=== PATIENT | female | born 1975 | race Caucasian/White ===

== ENCOUNTER 2024-09-29 14:11 | Emergency (ER) | payer BC, OTHER ==
[2024-09-29 14:27] VITALS: BP 113/69; PULSE 72; RESP 16; TEMP 98.1; BMI 26.5
[2024-09-29 15:29] LABS: INR 1.08 (0.83-1.09)
[2024-09-29 15:30] LABS: ABSOLUTE IMMATURE GRANULOCYTES 0.01 x10^3/uL (0.0-0.031); BASOPHILS # 0.02 x10^3/uL (0.01-0.08); EOSINOPHIL % 3.4 % (0.7-5.8); EOSINOPHILS # 0.16 x10^3/uL (0.04-0.36); HEMATOCRIT 35.1 % (34.1-44.9); HEMOGLOBIN 11.6 g/dL (11.2-15.7); MEAN CELL VOLUME 94.4 fl (79.4-94.8); MEAN PLT VOLUME 9.9 fl (9.4-12.3); MONOCYTE # 0.46 x10^3/uL (0.24-0.86); MONOCYTE % 9.7 % (4.7-12.5); PLATELET COUNT 267 x10^3/uL (182-369); RDW 14.5 % (12.2-17.1)
[2024-09-29 15:32] LABS: ACTIVATED PTT 32.4 SECONDS (25.2-36.5)
[2024-09-29 15:40] LABS: ALBUMIN 3.7 g/dl (3.4-5.0); BILIRUBIN,DIRECT 0.2 mg/dL (0.0-0.2); BILIRUBIN,TOTAL 0.7 mg/dl (0.2-1); CALCIUM 9.6 mg/dl (8.5-10.1); CREATININE 0.7 mg/dl (0.6-1.3); POTASSIUM 3.7 mmol/L (3.5-5.1)
[2024-09-29 16:39] LABS: N-TERMINAL BNP 49.2 pg/ml (5-125)
[2024-09-29 17:25] LABS: HIV INTERPRETATION NEGATIVE (NEGATIVE)
[2024-09-29 17:26] LABS: HCV DIAGNOSTIC IN-HOUSE W/RFLX NON-REACTIVE (NONREACTIVE)
== END 2024-09-29 17:31 | disposition home or self-care (01) ==
LOC: FER 14:11
DX: M79.89 Other specified soft tissue disorders (principal); R19.00 Intra-abdominal and pelvic swelling, mass and lump, unspecified site
CPT/HCPCS: 36415; 76705-TC; 80053; 82248; 83880; 84484; 84703; 85025; 85610; 85730; 86803; 87389; 93005; 93970-TC; 99285-25